=== PATIENT | male | born 1940 | race Caucasian/White ===

== ENCOUNTER → 2017-02-25 | Outpatient (REF) | payer MEDICARE ==
[~2017-02-25] MED LIST: ALBU17IN INH; ARIC1TAB2 PO; ASPI81CH30 PO; ASPI81TA85 PO; ATOR1TAB21 PO; LISI10TA4 PO; MEMA1TAB2 PO; OMEP40CA2 PO; TIOT18INH INH; VITA500T3 PO
[2017-02-25 11:28] LABS: BASO % 0.6 % (0.0-1.0); EOS # 0.2 K/mm3 (0.0-0.50); LARGE UNSTAINED CELL # 0.2 K/mm3 (0.0-0.4); LARGE UNSTAINED CELL % 2.4 % (0.0-4.0); LYMPH # 1.8 K/mm3 (1.5-4.5); LYMPH % 22.5 % (24.0-44.0); MEAN CORPUSCULAR HEMOGLOBIN 29.2 pg (27.0-33.0); MEAN CORPUSCULAR HGB CONC 33.2 g/dl (32.0-36.5); MEAN CORPUSCULAR VOLUME 88.2 fl (80.0-96.0); MONO # 0.6 K/mm3 (0.0-0.8); MONO % 8.6 % (0.0-5.0); NEUTROPHILS # 4.7 K/mm3 (1.8-7.7); NEUTROPHILS % 63.8 % (36.0-66.0); PLATELET COUNT, AUTOMATED 289 k/mm3 (150-450); RED CELL DISTRIBUTION WIDTH 14.7 % (11.5-14.5); WHITE BLOOD COUNT 7.3 K/mm3 (4.0-10.0)
[2017-02-25 12:14] LABS: ALBUMIN 3.5 GM/DL (3.2-5.2); ALBUMIN/GLOBULIN RATIO 1.03 (1.00-1.93); ALKALINE PHOSPHATASE 106 U/L (45-117); ALT/SGPT 17 U/L (12-78); ANION GAP 9 MEQ/L (8-16); AST/SGOT 15 U/L (15-37); BILIRUBIN,TOTAL 0.7 MG/DL (0.2-1.0); BLOOD UREA NITROGEN 20 MG/DL (7-18); CALCIUM LEVEL 8.9 MG/DL (8.8-10.2); CARBON DIOXIDE LEVEL 28 MEQ/L (21-32); CHLORIDE LEVEL 104 MEQ/L (98-107); CHOLESTEROL LEVEL 155 MG/DL (<200); CREATININE FOR GFR 1.15 MG/DL (0.70-1.30); GLOMERULAR FILTRATION RATE > 60.0 (>42); GLUCOSE, FASTING 84 MG/DL (83-110); SODIUM LEVEL 141 MEQ/L (136-145); TOTAL PROTEIN 6.9 GM/DL (6.4-8.2); TRIGLYCERIDES LEVEL 63 MG/DL (<150)
== END ==
LOC: M SFHCCLAY 08:27
PROVIDERS: ATTEND Nurse Practitioner
DX: R55 Syncope and collapse (principal); Z79.82 Long term (current) use of aspirin; Z79.899 Other long term (current) drug therapy

== ENCOUNTER 2017-02-26 11:08 | Day surgery (SDC) | payer MEDICARE ==
[~2017-02-26] VITALS: Ht 172.7 cm; Wt 66.0 kg
[2017-02-26] VITALS (8 sets, daily range): BP systolic 145–190; BP diastolic 80–86
[2017-02-26] MEDS ORDERED: ARIC1TAB2 PO (11:20)
[2017-02-26] MEDS ORDERED: OMEP40CA2 PO (11:20)
[2017-02-26] MEDS ORDERED: ALBU17IN INH (11:20)
[2017-02-26] MEDS ORDERED: MEMA1TAB2 PO (11:20)
[2017-02-26] MEDS ORDERED: ATOR1TAB21 PO (11:20)
[2017-02-26] MEDS ORDERED: ASPI81TA85 PO (11:21)
[2017-02-26 12:06] LABS: BASO % 0.6 % (0.0-1.0); EOS # 0.1 K/mm3 (0.0-0.50); EOS % 1.9 % (0.0-3.0); LARGE UNSTAINED CELL # 0.1 K/mm3 (0.0-0.4); LYMPH # 2.2 K/mm3 (1.5-4.5); LYMPH % 29.2 % (24.0-44.0); MEAN CORPUSCULAR VOLUME 87.7 fl (80.0-96.0); MONO # 0.7 K/mm3 (0.0-0.8); MONO % 10.2 % (0.0-5.0); NEUTROPHILS % 56.2 % (36.0-66.0); PLATELET COUNT, AUTOMATED 298 k/mm3 (150-450); RED CELL DISTRIBUTION WIDTH 14.7 % (11.5-14.5)
[2017-02-26 12:08] LABS: INR 1.03
[2017-02-26 12:14] LABS: ANION GAP 6 MEQ/L (8-16); BLOOD UREA NITROGEN 19 MG/DL (7-18); CARBON DIOXIDE LEVEL 29 MEQ/L (21-32); CHLORIDE LEVEL 107 MEQ/L (98-107); CREATININE FOR GFR 1.41 MG/DL (0.70-1.30); GLOMERULAR FILTRATION RATE 52.3 (>42); GLUCOSE, FASTING 149 MG/DL (83-110); SODIUM LEVEL 142 MEQ/L (136-145)
[2017-02-26] MEDS ORDERED: LR 1,000 ML IV SCH ×2 (12:15→19:15)
[2017-02-26 12:25] LABS: POTASSIUM SERUM 3.1 MEQ/L (3.5-5.1)
[2017-02-26] MEDS ORDERED: POTASSIUM CHLORIDE 10 MEQ SR TABLET PO ONE (13:00)
--- NOTE | 2017-02-26 13:20 | REP ---
CHEST, ONE VIEW: HISTORY: Syncope. Linear densities are present in the upper lobes consistent with scarring. Diffuse increase in interstitial markings is present consistent with chronic interstitial change. Bullae are present. The heart is normal in size. The pulmonary vasculature is normal in appearance. IMPRESSION: COPD. Signed by Raffi Mora MD 02/26/2017 01:36 P
--- NOTE | 2017-02-26 13:45 | ECGEPIP ---
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
[2017-02-26] MEDS ORDERED: LIDOCAINE 1% SDV INJ 30 ML VIAL As Ordered ONE (15:20)
[2017-02-26] MEDS ORDERED: PROPOFOL 200 MG/20 ML VIAL As Ordered ONE (17:04)
[2017-02-26] MEDS ORDERED: MIDAZOLAM INJ 2 MG/2 ML VIAL (J2250) As Ordered ONE (17:04)
[2017-02-26] MEDS ORDERED: ONDANSETRON 4MG/2ML VIAL (J2405) As Ordered ONE (17:04)
[2017-02-26] MEDS ORDERED: fentaNYL 100 MCG/2 ML INJECTION (J3010) As Ordered ONE (17:04)
[2017-02-26] MEDS ORDERED: LIDOCAINE 2% INJ 100 MG/5 ML SDV (FOR ANES.) As Ordered ONE (17:04)
--- NOTE | 2017-02-26 17:07 | HPE ---
DATE OF ADMISSION: 02/26/2017 ADMISSION HISTORY AND PHYSICAL REFERRING PHYSICIANS: Dr. Fuentes and Dr. De La Torre ATTENDING PHYSICIAN: Dr. Alden Pantoja CHIEF COMPLAINT: Recurrent syncopal spells with event monitor documenting high-grade atrioventricular (AV) block. 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 Fuentes for multiple problems, including gastroesophageal reflux disease, wheezy bronchitis, hypercholesterolemia, and senile dementia. He has also had a history of paroxysmal episodes of collapse/loss of consciousness dating back at least 2 years. Had been hospitalized at [facility] for approximately a week without apparent recurrent problem and negative workup. He has continued to have intermittent episodes, including the past few weeks, leading to referral for event monitor placement through Dr. De La Torre's office. This monitor has shown asymptomatic episodes of high-grade AV block with ventricular asystole to 9.8 seconds in duration. In light of this, he was referred to [facility] (ER) for permanent pacemaker implantation. Customarily he claims not to feel restricted. 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 May climb a flight of stairs, ultimately limited perhaps by some leg fatigue or dyspnea. Specifically denies any chest discomfort. Has no awareness of his heart action. Episodes of loss of consciousness have occurred in the standing, sitting, and supine positions, according to his . These have lasted relatively briefly and have been associated with some myoclonic movements of his mouth but no other movements to suggest seizure activity. Denies lateralizing neurological deficit to suggest embolic events. No previously documented peripheral vascular disease or claudication. No problem with ankle swelling or varicose veins. No known heart murmur or cardiac enlargement. CORONARY RISK FACTORS: Male gender, age, prior smoker, hypercholesterolemia. Unaware of hypertension, diabetes, or family history of premature coronary heart disease. PRIOR HOSPITALIZATIONS: 1. Remote lung abscess/empyema. 2. Episode of loss of consciousness as described above. SYSTEMS REVIEW: No history of fever, chills, or weight loss. Wears corrective lenses. No hearing problems. Upper dental bridge. Denies cough or sputum. No history of hemoptysis. Intermittent heartburn, treated with omeprazole. No other abdominal pains or gastrointestinal (GI) bleeding. Occasional nocturia. Denies hematuria or dysuria. No musculoskeletal complaints. All other systems review is negative. MEDICATIONS: - albuterol inhaler 2 puffs four times a day as needed - atorvastatin 20 mg at bedtime - omeprazole 40 mg daily - donepezil 10 mg at bedtime - memantine 10 mg 10 mg by mouth twice a day ALLERGIES: None known. PHYSICAL EXAMINATION: CONSTITUTIONAL: Pleasant, simple, elderly male lying comfortably with the head of bed elevated 30 degrees. No obvious pallor or cyanosis. VITAL SIGNS: Heart rate 56 beats per minute and regular, blood pressure 170/88 supine, 166/80 sitting with legs dependent (both arms), respiratory rate 16 per minute, oxygen saturation 96% on room air. Weight 63.6 kg, height 5 feet 9 inches. EYES: Normal conjunctivae. No pallor or icterus. No xanthelasma. ENT/MOUTH: Upper dental bridge, teeth in fair repair. Normal oral moisture. No central cyanosis. NECK: Trachea midline. Thyroid not enlarged. Neck veins did not appear to be elevated. RESPIRATORY: Slightly increased anteroposterior chest diameter with fair chest excursion. Good air entry over both lung tafoya with no inspiratory rales or respiratory rhonchi at this time. CARDIOVASCULAR: Apical impulse at the midclavicular line 5th costal space. Somewhat loud S1. Normal S2 with normal S2 splitting. S4 but no S3 gallop. No audible murmur. Upper and lower peripheral pulses were symmetrical and normal. No dependent edema or varicose veins. Abdominal aorta not palpable. No bruits. EXTREMITIES: Has beaked nails but not clubbed nails. No peripheral cyanosis or splinter hemorrhages. GASTROINTESTINAL: Soft, nontender abdomen with no hepatosplenomegaly. Normal bowel sounds. Rectal examination not indicated. MUSCULOSKELETAL: No obvious joint deformities. Some proximal muscle wasting but normal strength and tone. Normal spine curvature. NEUROLOGIC/PSYCHIATRIC: Bright, alert, and oriented. Gave a fair history. Eye, facial, and extremity movements were symmetrical and normal. No abnormal movements. Affect was normal. INVESTIGATIONS: EKG in the emergency room showed sinus rhythm at 59 beats per minute. Normal NV interval and axis. Normal QRS duration. Small inferior and apical Q-waves. Could not rule out prior injury, but no repolarization abnormality. Portable upright chest x-ray taken earlier today was reviewed independently and shows at least mild cardiomegaly, even given this portable technique. His mediastinum appears to be slightly displaced to the left side. Degree of hyperinflated lung tafoya with scarring and reduced volume in the left upper lobe. Normal-appearing pulmonary vasculature. He has undergone serial chest CT scans without contrast. The last study 12/08/2014 was reviewed independently and shows atherosclerotic changes of his thoracic aorta but normal aortic root size. His pulmonary vessels also appeared to be of normal size. There appeared to be some calcification of his coronary arteries. Heart chamber sizes appeared to be grossly normal. His inferior vena cava was of normal size. No pericardial effusion. Radiology report again indicates persistent volume loss in the left hemithorax related to his prior empyema. Bolus of pulmonary changes. Some loculated pleural fluid and extensive scarring of his left upper lung. LABORATORY DATA: Blood work today showed a hemoglobin of 13.1 with normal white blood cell count and platelet count. PT/INR and PTT were normal. Serum potassium was soft at 3.1, but other electrolytes were normal. BUN was 19, creatinine 1.4, random glucose 149. Serum calcium was normal. Ultrasensitive TSH was normal at 2.7. Troponin I level was negative. PROVISIONAL DIAGNOSES: 1. Recurrent near syncope/syncope. 2. Paroxysmal complete heart block. 3. Abnormal EKG/small inferior EVERY waves, rule out prior infarction. 4. Smoking-induced chronic obstructive pulmonary disease/extensive scarring, left lung, related to remote empyema. 5. Gastroesophageal reflux disease, on omeprazole chronically 6. Senile dementia. PLAN: The patient has been kept nothing by mouth, currently on Ringer's lactate at 50 mL an hour. We have recommended implantation of permanent dual-chamber pacemaker under monitored local anesthesia. The patient and family appear to understand the indication and procedure, and informed consent has been signed. We will plan on scrubbing his left subclavian region with Hibiclens, and I have ordered Ancef IV premedication. Following pacemaker implantation, will be correcting his mild hypokalemia and likely initiating antihypertensive therapy. Other medications will be continued as prior to his hospitalization. We are cautiously optimistic that he will be able to be discharged tomorrow morning following pacemaker implant.
[2017-02-26] MEDS ORDERED: ceFAZolin 2 GM/D5W 50 ML IV BAG (J0690) As Ordered ONE (17:23)
[2017-02-26] MEDS ORDERED: LISINOPRIL 10 MG TAB PO SCH (19:00)
[2017-02-26] MEDS ORDERED: ONDANSETRON 4MG/2ML VIAL (J2405) IV PRN (19:15)
[2017-02-26] MEDS ORDERED: fentaNYL 100 MCG/2 ML INJECTION (J3010) IV PRN (19:15)
--- NOTE | 2017-02-26 19:52 | RO ---
DATE OF PROCEDURE: 02/26/2017 PREOPERATIVE DIAGNOSIS: Paroxysmal complete heart block with syncope. POSTOPERATIVE DIAGNOSIS: Paroxysmal complete heart block with syncope. PROCEDURE: Implantation of permanent dual-chamber pacemaker. SURGEON/IMPLANTING BROKERAGE OFFICE MANAGER: Dr. Alden Pantoja FOLLOWING BROKERAGE OFFICE MANAGER: Dr. De La Torre. RIVER GUIDE: Dr. Tiff Dorantes ANESTHESIOLOGIST: Dr. Marco A Perkins TYPE OF ANESTHESIA: Monitored local anesthesia new heading DESCRIPTION OF PROCEDURE: In the fasting state following Ancef 2 grams IV premedication and informed consent, the patient was taken to the operating theater. Numerous skin electrodes were applied to facilitate continuous electrocardiographic monitoring. The left subclavian region was prepped and draped in the usual fashion. The skin was infiltrated with 1% Xylocaine. The left axillary vein was catheterized using the micropuncture technique. A 5-cm linear incision was made several centimeters below and parallel to the left clavicle. Dissection was carried down to the level of the pectoralis fascia and a pocket was fashioned below the level of the incision line. Related to his prior pulmonary infection and right upper lobe scarring, his mediastinum was shifted to the left side, which made advancing his guidewires down to his inferior vena cava somewhat challenging. We finally were able to advance our guidewires using a "Glidewire." Two bipolar screw-in active fixation steroid-eluting pacing leads were then positioned to the distal right ventricular septum and high right atrial wall under fluoroscopic and electrocardiographic control. The ventricular lead ([employer], model number [id number]/58, serial number [id number]) measurements were: Stimulation threshold 0.4V/0.4 ms/impedance 776 ohms. The R wave amplitude measured 12.3 mV. The atrial lead ([employer], model number [id number]/52, serial number [id number]) measurements were: Stimulation threshold 1.5V/0.4 ms/impedance 735 ohms. The P wave amplitude measured 5.1 mV. By the time we reached the recovery room, this atrial pacing threshold had dropped to 0.5V/ 0.4 ms. These leads were secured in position by sleeves sutured at their insertion site. They were then connected to a dual-chamber pulse generator ([employer] - Assurity MRI compatible, model number [id number], serial number [id number]) and appropriate DDD pacing was documented. The pulse generator was then placed in the pocket and secured in position with a suture through the upper right-hand corner of the epoxy header. The subcutaneous tissues were approximated using a running chromic suture and the skin was closed using nicolle. A dry dressing was applied, and the patient was returned to the recovery room in good condition. Estimated blood loss: Less than 50 mL. No apparent complications. Postoperative portable upright chest x-ray showed good lead position with no pneumothorax. His EKG showed consistent atrially paced rhythm with currently spontaneously conducted QRS complexes. We will plan on monitoring him overnight, and he will receive an additional three doses of Ancef 1 gram IV every 8 hours. Copy To: Dr. Alfredo PRITCHARD
--- NOTE | 2017-02-26 20:16 | REP ---
Portable chest x-ray: Single view: History: Question pneumothorax. Comparison study: 02/26/2017 at 12:31 p.m. Findings: A bipolar pacemaker is been installed in the right heart via the left subclavian vein region. Skin nicolle are seen adjacent to the pacemaker power plant. There is no visible pneumothorax or hydrothorax. The lungs are hyperinflated with biapical fibrotic changes consistent with COPD. The heart is not enlarged. Impression: No pneumothorax seen. Pacemaker in place. Evidence of COPD. Signed by Yosef Manzo MD 02/27/2017 07:54 A
[2017-02-26] MEDS ORDERED: LISINOPRIL 10 MG TAB PO ONE (20:30)
[2017-02-26] MEDS ORDERED: ATORVASTATIN 20 MG TAB PO SCH (21:00)
[2017-02-26] MEDS ORDERED: ALBUTEROL 90 MCG/ACT 8GM HFA INHALER INH SCH (21:00)
[2017-02-26] MEDS ORDERED: DONEPEZIL 5 MG TAB PO SCH (21:00)
[2017-02-26] MEDS: MEMANTINE 5MG TABLET (NAMENDA) PO SCH (22:19)
[2017-02-26] MEDS: ACETAMINOPHEN TAB 650MG DOSE (2X325MG) PO PRN (22:36)
[2017-02-27] MEDS: ceFAZolin SOD 1 GM in D5W MINI-BAG PLUS 50 ML IV SCH ×2 (00:04→09:07)
[2017-02-27 00:32] VITALS: BP 166/85
[2017-02-27 01:32] VITALS: BP 141/80
[2017-02-27] MEDS: ACETAMINOPHEN TAB 650MG DOSE (2X325MG) PO PRN ×2 (04:17→09:20)
[2017-02-27 05:32] VITALS: BP 122/72
[2017-02-27 06:02] LABS: ALBUMIN 2.9 GM/DL (3.2-5.2); ANION GAP 6 MEQ/L (8-16); BLOOD UREA NITROGEN 16 MG/DL (7-18); CALCIUM LEVEL 8.3 MG/DL (8.8-10.2); CARBON DIOXIDE LEVEL 29 MEQ/L (21-32); CHLORIDE LEVEL 105 MEQ/L (98-107); CREATININE FOR GFR 1.06 MG/DL (0.70-1.30); GLOMERULAR FILTRATION RATE > 60.0 (>42); GLUCOSE, FASTING 108 MG/DL (83-110); PHOSPHORUS LEVEL 3.4 MG/DL (2.5-4.9); POTASSIUM SERUM 3.3 MEQ/L (3.5-5.1); SODIUM LEVEL 140 MEQ/L (136-145)
[2017-02-27 08:00] VITALS: BP 127/76
--- NOTE | 2017-02-27 08:14 | REP ---
Chest x-ray: Two views. History: Pacemaker insertion. Comparison study February 26, 2017. Findings: The patient is rotated somewhat to the left for the current radiograph. A dual lead pacemaker is installed via the left side. There is no evidence of pneumothorax or hydrothorax. There is biapical coarse pleuroparenchymal fibrosis with upward retraction of both hilar vessels as before consistent with COPD. No new infiltrate is seen. Signed by Yosef Manzo MD 02/27/2017 10:45 A
[2017-02-27] MEDS ORDERED: POTASSIUM CHLORIDE 10 MEQ SR TABLET PO ONE (08:30)
[2017-02-27] MEDS ORDERED: LISI10TA4 PO (08:43)
[2017-02-27] MEDS ORDERED: ASPIRIN 81 MG ENTERIC TAB PO SCH (09:00)
[2017-02-27] MEDS ORDERED: OMEPRAZOLE 20 MG CAP PO SCH (09:00)
[2017-02-27] MEDS ORDERED: LISINOPRIL 10 MG TAB PO SCH ×3 (09:00)
[2017-02-27 09:08] VITALS: BP 127/76
[2017-02-27] MEDS: MEMANTINE 5MG TABLET (NAMENDA) PO SCH (09:08)
--- NOTE | 2017-02-27 09:31 | DSES ---
DATE OF ADMISSION: 02/26/2017 DATE OF DISCHARGE: 02/27/2017 ATTENDING PHYSICIAN: Dr. Alden Pantoja CLINICAL SUMMARY: 76-year-old male with history of recurrent near syncope and syncope dating back several years finally confirmed to be related to paroxysmal complete heart block with 30-day event monitor through Dr. De La Torre's cardiology office. The patient suffered a syncopal spell this past weekend and was referred to the emergency room here for a permanent pacemaker implant. Please see my admission history and physical for further details. INVESTIGATIONS AND COURSE IN THE HOSPITAL: At the time of his presentation to emergency room he was alert and bright, heart rate was 60 beats per minute and regular, blood pressure 152/82, respiratory rate 18, O2 saturation 97% and he was afebrile. He was actually denying any complaint. His EKG showed sinus bradycardia at 59 bpm with small inferior Q-waves, possibly a prior infarction, but remarkably was otherwise normal. In particular, there was no sign of even a first-degree AV block. His admission portable upright chest x-ray showed a heart size that was upper limits of normal with normal pulmonary vasculature. He had hyperinflated lung tafoya with bullae consistent with chronic obstructive pulmonary disease (COPD), but considerable left upper lobe scarring with slight shift of his mediastinum to the left chest related to his remote pneumonia/empyema. Blood work showed a normal complete blood count, PT/PTT. His chemistry showed a slight degree of hypokalemia, but otherwise electrolytes were normal. BUN was 19, creatinine 1.4, random glucose 149, Troponin I level was negative. His ultra sensitive TSH was normal at 2.7. Yesterday afternoon, in the fasting state, following informed consent, the patient underwent implantation of a dual-chamber pacemaker ([employer] - Assurity MRI compatible, model number [id number]) under monitored local anesthesia. Somewhat challenging placement related to his left upper lobe scarring and shift of his mediastinum to left, but excellent intracardiac electrograms and pacing thresholds were obtained. He was monitored on telemetry overnight and appropriate pacer function was documented. In light of his hypokalemia and impressive systolic hypertension in the 180-190 range postoperatively, he was started on lisinopril TABITHA inhibitor vasodilator therapy. His blood pressure was significantly improved. Sitting blood pressure this morning 140/74. A chemistry this morning showed a potassium of 3.3, slightly up from yesterday. He was given KCL 40 mEq p.o. this morning. BUN had a improved dropping to 16 and creatinine had improved to 1.0, fasting glucose was 108. Followup PA and left lateral chest x-ray showed stable lead position with no pneumothorax. Complete pacemaker interrogation was performed today, again showing excellent intracardiac electrograms with atrial activity measuring greater than 5.0 ml and ventricular activity greater than 12.0 mV. The pacing thresholds in both chambers was 0.5 volts/0.4 milliseconds. Anticipated battery longevity 11.8 years. We did activate his ventricular autocapture function and his atrial amplitude was reduced to 1.5 volts. The patient was able to ambulate in the [place] without problems and anxious to go home. FINAL DIAGNOSES: 1. Paroxysmal complete heart block with recurrent near syncope/syncope/now with dual-chamber pacemaker in situ. 2. Abnormal EKG/possibility of prior inferior wall myocardial infarction. 3. Essential hypertension (benign). 4. Gastroesophageal reflux. 5. Hypercholesterolemia. 6. Senile dementia. MEDICATIONS: His medications on discharge we will include: - lisinopril 10 mg daily - aspirin 81 mg daily - atorvastatin 20 mg at bedtime - omeprazole 40 mg daily - albuterol inhaler two puffs four times a day as needed for dyspnea - donepezil 10 mg daily - memantine 10 mg twice a day He was given a followup appointment for wound check and staple removal in my office for March 06 at 2:30 p.m. Subsequent cardiology followup will be with Dr. De La Torre at the [facility]. He has been encouraged to contact us promptly for any abnormal erythema, swelling or discharge. His diet will be no added salt. Activity was to be as tolerated except for light activity with his left arm until his nicolle are removed. We have also requested that he avoid getting his incision wet until his nicolle are removed. cc: MD Scottie Melvin MD
--- NOTE | 2017-02-27 19:54 | ECGEPIP ---
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 Appropriate dual-chamber pacemaker function Prominent precordial voltage consistent with LVH. Atrial pacing new from earlier this same day Electronically Signed On 02-27-2017 19:54:01 EDT by Alden Pantoja
--- NOTE | 2017-02-27 19:55 | ECGEPIP ---
Stationary ECG Study 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 Prominent precordial voltage; rule out LVH. Small inferior Q waves; rule out prior IWMI. No change from tracing 02/26/17 at 1916 hrs. Electronically Signed On 02-27-2017 19:55:47 EDT by Alden Pantoja
[2017-06-08] MEDS ORDERED: ASPI81CH30 PO (23:36)
[2017-06-08] MEDS ORDERED: VITA500T3 PO (23:36)
[2017-06-08] MEDS ORDERED: TIOT18INH INH (23:36)
[2017-06-08] MEDS ORDERED: LISI10TA4 PO (23:36)
== END 2017-02-27 13:47 | disposition home or self-care (01) ==
LOC: M ED 11:08 → M SDC 16:15 → M PCU 19:57 → M SDC 02-27 13:47
PROVIDERS: ATTEND Internal Medicine Cardiovascular Disease
DX: I44.2 Atrioventricular block, complete (principal); R55 Syncope and collapse; I10 Essential (primary) hypertension; E78.5 Hyperlipidemia, unspecified; J44.9 Chronic obstructive pulmonary disease, unspecified; K21.9 Gastro-esophageal reflux disease without esophagitis; G30.0 Alzheimer's disease with early onset; E78.00 Pure hypercholesterolemia, unspecified; R94.31 Abnormal electrocardiogram [ECG] [EKG]; Z88.1 Allergy status to other antibiotic agents; Z79.899 Other long term (current) drug therapy; Z79.82 Long term (current) use of aspirin
CPT/HCPCS: 33208; 36415; 71010; 71020; 76000; 80048; 80069; 82550; 82553; 84443; 84484; 85025; 85610; 85730; 93005; 93041; 94760; 99285; C1785; C1898; J0690; J2250; J2405; J3010

== ENCOUNTER → 2017-05-27 | Outpatient (REF) | payer MEDICARE ==
[2017-05-27 20:13] LABS: MEAN CORPUSCULAR HGB CONC 32.8 g/dl (32.0-36.5); MEAN CORPUSCULAR VOLUME 91.5 fl (80.0-96.0); PLATELET COUNT, AUTOMATED 252 10^3/uL (150-450); RED CELL DISTRIBUTION WIDTH 13.7 % (11.5-14.5); WHITE BLOOD COUNT 11.5 10^3/uL (4.0-10.0)
[2017-05-27 20:22] LABS: ADD MANUAL DIFFER YES; DIFF SLIDE NUMBER 316; POSITIVE DIFF POS FLAG
[2017-05-27 20:39] LABS: ERYTHROCYTE SEDIMENTATION RATE 17 mm/hr (0-20)
[2017-05-27 20:52] LABS: VITAMIN B12 LEVEL 332 PG/ML (247-911)
[2017-05-27 21:04] LABS: ALBUMIN 3.6 GM/DL (3.2-5.2); ALBUMIN/GLOBULIN RATIO 0.95 (1.00-1.93); ALKALINE PHOSPHATASE 127 U/L (45-117); ALT/SGPT 15 U/L (12-78); ANION GAP 11 MEQ/L (8-16); AST/SGOT 11 U/L (15-37); BILIRUBIN,TOTAL 0.6 MG/DL (0.2-1.0); BLOOD UREA NITROGEN 34 MG/DL (7-18); CALCIUM LEVEL 9.1 MG/DL (8.8-10.2); CARBON DIOXIDE LEVEL 29 MEQ/L (21-32); CHLORIDE LEVEL 105 MEQ/L (98-107); CREATININE FOR GFR 1.39 MG/DL (0.70-1.30); FREE T4 1.13 NG/DL (0.76-1.46); GLOMERULAR FILTRATION RATE 53.2 (>42); GLUCOSE, FASTING 81 MG/DL (83-110); POTASSIUM SERUM 3.1 MEQ/L (3.5-5.1); SODIUM LEVEL 145 MEQ/L (136-145); TOTAL PROTEIN 7.4 GM/DL (6.4-8.2)
[2017-05-27 21:10] LABS: EOSINOPHILS 1 % (0-5)
[2017-05-27 21:46] LABS: FOLATE > 24.0 NG/ML (>5.4)
[2017-06-02 00:06] LABS: Lyme Disease IgG/IgM Antibodie <0.91 ISR (0.00-0.90); Lyme Disease IgM Ab Quantitati <0.80 index (0.00-0.79); VITAMIN E LEVEL 10.6 mg/L (5.3-17.5)
== END ==
LOC: M LABNEURO 16:10
PROVIDERS: ATTEND Psychiatry & Neurology Neurology
DX: Z11.59 Encounter for screening for other viral diseases (principal); Z13.89 Encounter for screening for other disorder; Z79.899 Other long term (current) drug therapy; Z13.29 Encounter for screening for other suspected endocrine disorder